=== PATIENT | male | born 1945 | race African-American/Black ===

== ENCOUNTER 2018-06-20 06:12 | Inpatient (IN) ==
[2018-06-20] MEDS ORDERED: FUROSEMIDE 100 MG/10 ML VIAL IV STA (06:21)
[2018-06-20] MEDS ORDERED: ALBUTEROL 2.5 MG/3 ML NEB RESP TX SCH (06:30)
[2018-06-20 06:53] LABS: Basophils % 0.4 % (0.0-0.8); Eosinophils % 0.3 % (0.00-10.9); Hematocrit 40.9 VOL% (42.0-52.0); Hemoglobin 12.8 GM/DL (14.0-18.0); Immature Granulocytes % 0.3 %; Immature Granulocytes Absolute 0.03 #; Lymphocytes # 1.5 10*3/uL (1.4-4.0); Lymphocytes % 15.9 % (21.2-54.2); Mean Corpuscular HGB Conc 31.3 GM/DL (32-36); Mean Corpuscular Hemoglobin 29 PG (27-34); Mean Corpuscular Volume 91.7 FL (87-102); Mean Platelet Volume 10.3 FL (9.6-12.0); Monocytes # 0.6 10*3/uL (0.11-0.8); Monocytes % 6.5 % (1.7-12.7); Neutrophils # 7.4 10*3/uL (1.4-7.4); Neutrophils % 76.6 % (38.7-73.9); Platelet Count 238 T/CUMM (130-400); Red Blood Count 4.46 MC/CUMM (3.8-5.5); Red Cell Distribution Width 16.1 % (9.3-17.3); White Blood Count 9.7 T/CUMM (4-12)
[2018-06-20 06:59] LABS: ABG Base Excess 1.3 MMOL/L (-2.5-2.5); ABG HCO3 25.5 MMOL/L (20-26); ABG PCO2 38.4 MM HG (35-48); ABG PO2 84.8 MM HG (80-95); ABG TCO2 22.2 MMOL/L (23-27); Allen Test Positive
[2018-06-20 07:06] LABS: INR 1.1; PT Patient Result 11.5 SECS; Partial Thromboplastin Time 25.9 SECS (0-40)
[2018-06-20 07:12] LABS: Albumin 3.2 G/DL (3.4-5.0); Bilirubin,Total 2.1 MG/DL (0.2-1.0); Calcium 8.8 MG/DL (8.5-10.1); Osmolality,Calculated 265.7 MOS/KG (273-304); Potassium 4.7 MMOL/L (3.5-5.1); Total Protein 6.7 G/DL (6.4-8.3)
[2018-06-20 07:40] LABS: Apearance,Urine CLEAR (Clear); Bilirubin,Urine Negative (Negative); Blood, Urine Negative (Negative); Glucose,Urine (UA) Negative (Negative); Hyaline Casts,Urine 4 /LPF (0-3); Ketones,Urine Negative (Negative); Mucus,Urine Occasional /LPF (Occasional); Nitrite,Urine Negative (Negative); Protein,Urine Negative; RBC,Urine <1 /HPF (0-4); Urine Color Straw (Yellow); Urine Specific Gravity 1.005 (1.001-1.035); Urine Urobilinogen < 2.0 EU/DL (0.2-1.0)
[2018-06-20] MEDS ORDERED: ACETAMINOPHEN 325 MG TABLET PO PRN (08:41)
[2018-06-20] MEDS ORDERED: ONDANSETRON 4 MG/2 ML VIAL IV PRN (08:41)
[2018-06-20] MEDS ORDERED: NICOTINE 21 MG/24 HR PATCH TRANSDERM PRN (08:41)
[2018-06-20] MEDS ORDERED: traMADol 50 MG TABLET PO PRN (08:57)
[2018-06-20] MEDS ORDERED: ALBUTEROL/IPRATROPIUM 3 ML NEB RESP TX PRN (08:57)
[2018-06-20] MEDS: ATORVASTATIN 40 MG TABLET PO SCH (11:55)
[2018-06-20] MEDS: METOPROLOL SUCCINATE XL 25 MG TABLET PO SCH (11:55)
[2018-06-20] MEDS: ASPIRIN CHEW 81 MG TABLET PO SCH (11:55)
[2018-06-20] MEDS: PANTOPRAZOLE 40 MG TABLET PO SCH (11:55)
[2018-06-20] MEDS: LACTULOSE 20 GM/30 ML UDCUP PO SCH (11:56)
[2018-06-20] MEDS: BUDESONIDE/FORMOTEROL 160-4.5 INHALER 6 GM INH SCH ×2 (11:56→21:08)
[2018-06-20] MEDS: ALBUTEROL/IPRATROPIUM 3 ML NEB RESP TX SCH ×2 (12:02→19:39)
[2018-06-20] MEDS: FUROSEMIDE 40 MG/4 ML VIAL IV SCH (17:53)
[2018-06-21] MEDS: ALBUTEROL/IPRATROPIUM 3 ML NEB RESP TX SCH ×4 (01:48→19:54)
[2018-06-21 04:05] LABS: Basophils % 0.4 % (0.0-0.8); Eosinophils % 0.2 % (0.00-10.9); Hematocrit 32.8 VOL% (42.0-52.0); Hemoglobin 10.8 GM/DL (14.0-18.0); Immature Granulocytes % 0.5 %; Immature Granulocytes Absolute 0.04 #; Lymphocytes % 11.1 % (21.2-54.2); Mean Corpuscular HGB Conc 32.9 GM/DL (32-36); Mean Corpuscular Hemoglobin 29 PG (27-34); Mean Corpuscular Volume 89.1 FL (87-102); Mean Platelet Volume 10.4 FL (9.6-12.0); Monocytes # 0.8 10*3/uL (0.11-0.8); Monocytes % 9.1 % (1.7-12.7); Neutrophils # 6.7 10*3/uL (1.4-7.4); Neutrophils % 78.7 % (38.7-73.9); Platelet Count 196 T/CUMM (130-400); Red Blood Count 3.68 MC/CUMM (3.8-5.5); Red Cell Distribution Width 15.8 % (9.3-17.3); White Blood Count 8.6 T/CUMM (4-12)
[2018-06-21 04:31] LABS: Osmolality,Calculated 271.1 MOS/KG (273-304); Potassium 3.8 MMOL/L (3.5-5.1)
[2018-06-21 04:42] LABS: Calcium 8.3 MG/DL (8.5-10.1); Osmolality,Calculated 267.4 MOS/KG (273-304); Potassium 3.7 MMOL/L (3.5-5.1); Thyroid Stimulating Hormone 0.529 uIU/ml (0.358-3.74)
[2018-06-21] MEDS: LACTULOSE 20 GM/30 ML UDCUP PO SCH ×2 (09:12→09:13)
[2018-06-21] MEDS: BUDESONIDE/FORMOTEROL 160-4.5 INHALER 6 GM INH SCH ×2 (09:12→21:33)
[2018-06-21] MEDS: ATORVASTATIN 40 MG TABLET PO SCH (09:12)
[2018-06-21] MEDS: PANTOPRAZOLE 40 MG TABLET PO SCH (09:12)
[2018-06-21] MEDS: METOPROLOL SUCCINATE XL 25 MG TABLET PO SCH (09:12)
[2018-06-21] MEDS: FUROSEMIDE 40 MG/4 ML VIAL IV SCH ×2 (09:12→16:56)
[2018-06-21] MEDS: ASPIRIN CHEW 81 MG TABLET PO SCH (09:12)
[2018-06-21] MEDS: SACUBITRIL/VALSARTAN 49-51 MG TABLET PO SCH ×2 (09:26→21:33)
[2018-06-21] MEDS ORDERED: SKIN HEALING OINT (AQUAPHOR) 50 GM TUBE TOP PRN (12:44)
[2018-06-22 04:13] LABS: Basophils % 0.4 % (0.0-0.8); Eosinophils # 0.1 10*3/uL (0.0-0.87); Eosinophils % 1.1 % (0.00-10.9); Hematocrit 36.9 VOL% (42.0-52.0); Hemoglobin 11.6 GM/DL (14.0-18.0); Immature Granulocytes % 0.4 %; Immature Granulocytes Absolute 0.03 #; Lymphocytes # 1.4 10*3/uL (1.4-4.0); Lymphocytes % 18.6 % (21.2-54.2); Mean Corpuscular HGB Conc 31.4 GM/DL (32-36); Mean Corpuscular Hemoglobin 29 PG (27-34); Mean Corpuscular Volume 91.1 FL (87-102); Mean Platelet Volume 10.1 FL (9.6-12.0); Monocytes # 0.6 10*3/uL (0.11-0.8); Monocytes % 7.9 % (1.7-12.7); Neutrophils # 5.5 10*3/uL (1.4-7.4); Neutrophils % 71.6 % (38.7-73.9); Platelet Count 220 T/CUMM (130-400); Red Blood Count 4.05 MC/CUMM (3.8-5.5); Red Cell Distribution Width 15.9 % (9.3-17.3); White Blood Count 7.6 T/CUMM (4-12)
[2018-06-22 04:26] LABS: Calcium 8.7 MG/DL (8.5-10.1); Osmolality,Calculated 274.8 MOS/KG (273-304); Potassium 3.4 MMOL/L (3.5-5.1)
[2018-06-22] MEDS ORDERED: POTASSIUM CHLORIDE RIDER 10 MEQ in PREMIX 1 EACH IV PRN (04:28)
[2018-06-22 04:30] LABS: Albumin 2.7 G/DL (3.4-5.0); Bilirubin,Direct 0.53 MG/DL (0.0-0.20); Bilirubin,Total 1.5 MG/DL (0.2-1.0); Total Protein 6.3 G/DL (6.4-8.3)
[2018-06-22] MEDS: POTASSIUM CHLORIDE 20 MEQ TABLET PO PRN ×4 (06:43→21:08)
[2018-06-22] MEDS: ALBUTEROL/IPRATROPIUM 3 ML NEB RESP TX SCH ×4 (07:39→19:20)
[2018-06-22] MEDS: PANTOPRAZOLE 40 MG TABLET PO SCH (08:26)
[2018-06-22] MEDS: ASPIRIN CHEW 81 MG TABLET PO SCH (08:26)
[2018-06-22] MEDS: METOPROLOL SUCCINATE XL 25 MG TABLET PO SCH (08:26)
[2018-06-22] MEDS: LACTULOSE 20 GM/30 ML UDCUP PO SCH (08:26)
[2018-06-22] MEDS: ATORVASTATIN 40 MG TABLET PO SCH (08:26)
[2018-06-22] MEDS: FUROSEMIDE 40 MG/4 ML VIAL IV SCH ×2 (08:26→16:44)
[2018-06-22] MEDS: SACUBITRIL/VALSARTAN 49-51 MG TABLET PO SCH ×2 (08:33→21:04)
[2018-06-22] MEDS: BUDESONIDE/FORMOTEROL 160-4.5 INHALER 6 GM INH SCH ×2 (08:34→21:09)
[2018-06-22] MEDS: NYSTATIN 500,000 UNIT/5 ML UDCUP SWISH/SWAL SCH ×4 (08:34→22:04)
[2018-06-23] MEDS: ALBUTEROL/IPRATROPIUM 3 ML NEB RESP TX SCH ×4 (01:20→19:23)
[2018-06-23 04:26] LABS: Basophils % 0.4 % (0.0-0.8); Eosinophils # 0.2 10*3/uL (0.0-0.87); Eosinophils % 1.8 % (0.00-10.9); Hematocrit 37.5 VOL% (42.0-52.0); Hemoglobin 11.7 GM/DL (14.0-18.0); Immature Granulocytes % 0.2 %; Immature Granulocytes Absolute 0.02 #; Lymphocytes # 1.7 10*3/uL (1.4-4.0); Lymphocytes % 19.6 % (21.2-54.2); Mean Corpuscular HGB Conc 31.2 GM/DL (32-36); Mean Corpuscular Hemoglobin 29 PG (27-34); Mean Corpuscular Volume 92.4 FL (87-102); Mean Platelet Volume 10.1 FL (9.6-12.0); Monocytes # 0.9 10*3/uL (0.11-0.8); Monocytes % 10.1 % (1.7-12.7); Neutrophils # 5.8 10*3/uL (1.4-7.4); Neutrophils % 67.9 % (38.7-73.9); Platelet Count 221 T/CUMM (130-400); Red Blood Count 4.06 MC/CUMM (3.8-5.5); Red Cell Distribution Width 15.9 % (9.3-17.3); White Blood Count 8.5 T/CUMM (4-12)
[2018-06-23 04:45] LABS: Calcium 8.4 MG/DL (8.5-10.1); Osmolality,Calculated 281.4 MOS/KG (273-304); Potassium 3.9 MMOL/L (3.5-5.1)
[2018-06-23] MEDS: METOPROLOL SUCCINATE XL 25 MG TABLET PO SCH (09:11)
[2018-06-23] MEDS: ASPIRIN CHEW 81 MG TABLET PO SCH (09:11)
[2018-06-23] MEDS: PANTOPRAZOLE 40 MG TABLET PO SCH (09:11)
[2018-06-23] MEDS: NYSTATIN 500,000 UNIT/5 ML UDCUP SWISH/SWAL SCH ×4 (09:11→21:10)
[2018-06-23] MEDS: ATORVASTATIN 40 MG TABLET PO SCH (09:11)
[2018-06-23] MEDS: SACUBITRIL/VALSARTAN 49-51 MG TABLET PO SCH ×2 (09:11→21:10)
[2018-06-23] MEDS: BUDESONIDE/FORMOTEROL 160-4.5 INHALER 6 GM INH SCH ×2 (09:11→22:16)
[2018-06-23] MEDS: FUROSEMIDE 40 MG/4 ML VIAL IV SCH ×2 (09:12→16:40)
[2018-06-23] MEDS: LACTULOSE 20 GM/30 ML UDCUP PO SCH (09:16)
[2018-06-23] MEDS ORDERED: MAGNESIUM SULF RIDER 2 GM in PREMIX 1 EACH IV PRN (10:18)
[2018-06-23] MEDS ORDERED: POTASSIUM CHLORIDE RIDER 10 MEQ in PREMIX 1 EACH IV PRN (10:18)
[2018-06-23] MEDS: LEVOFLOXACIN INJ 750 MG in PREMIX 1 EACH IV SCH (10:27)
[2018-06-23] MEDS: POTASSIUM CHLORIDE 20 MEQ TABLET PO PRN (10:28)
[2018-06-24] MEDS: ALBUTEROL/IPRATROPIUM 3 ML NEB RESP TX SCH ×4 (00:13→19:16)
[2018-06-24 04:23] LABS: Basophils # 0.1 10*3/uL (0.0-0.2); Basophils % 0.7 % (0.0-0.8); Eosinophils # 0.1 10*3/uL (0.0-0.87); Eosinophils % 1.7 % (0.00-10.9); Hematocrit 39.8 VOL% (42.0-52.0); Hemoglobin 12.5 GM/DL (14.0-18.0); Immature Granulocytes % 0.5 %; Immature Granulocytes Absolute 0.04 #; Lymphocytes # 1.8 10*3/uL (1.4-4.0); Lymphocytes % 21.6 % (21.2-54.2); Mean Corpuscular HGB Conc 31.4 GM/DL (32-36); Mean Corpuscular Hemoglobin 29 PG (27-34); Mean Corpuscular Volume 91.9 FL (87-102); Mean Platelet Volume 10.4 FL (9.6-12.0); Monocytes # 0.8 10*3/uL (0.11-0.8); Monocytes % 9.6 % (1.7-12.7); Neutrophils # 5.6 10*3/uL (1.4-7.4); Neutrophils % 65.9 % (38.7-73.9); Platelet Count 242 T/CUMM (130-400); Red Blood Count 4.33 MC/CUMM (3.8-5.5); Red Cell Distribution Width 15.8 % (9.3-17.3); White Blood Count 8.4 T/CUMM (4-12)
[2018-06-24 04:44] LABS: Calcium 8.9 MG/DL (8.5-10.1); Osmolality,Calculated 275.8 MOS/KG (273-304); Potassium 3.9 MMOL/L (3.5-5.1)
[2018-06-24] MEDS ORDERED: diphenhydrAMINE CAP 25 MG CAPSULE PO ONE (07:00)
[2018-06-24] MEDS ORDERED: DIAZEPAM 5 MG TABLET PO ONE (07:00)
[2018-06-24] MEDS: ATORVASTATIN 40 MG TABLET PO SCH ×2 (07:02→09:30)
[2018-06-24] MEDS: ASPIRIN CHEW 81 MG TABLET PO SCH ×2 (07:02→09:31)
[2018-06-24] MEDS: METOPROLOL SUCCINATE XL 25 MG TABLET PO SCH ×2 (07:02→09:31)
[2018-06-24] MEDS ORDERED: LIDOCAINE 1%/EPI INJ 20 ML VIAL ONE (07:28)
[2018-06-24] MEDS ORDERED: MIDAZOLAM 2 MG/2 ML VIAL ONE (07:28)
[2018-06-24] MEDS ORDERED: fentaNYL 100 MCG/2 ML VIAL ONE (07:28)
[2018-06-24] MEDS ORDERED: HEPARIN/NACL 0.9% 2 UNITS/ML 1,000 ML IV ONE (07:28)
[2018-06-24] MEDS ORDERED: LIDOCAINE 1% 20 ML VIAL ONE (08:25)
[2018-06-24] MEDS: LEVOFLOXACIN INJ 750 MG in PREMIX 1 EACH IV SCH (09:29)
[2018-06-24] MEDS: PANTOPRAZOLE 40 MG TABLET PO SCH (09:30)
[2018-06-24] MEDS: NYSTATIN 500,000 UNIT/5 ML UDCUP SWISH/SWAL SCH ×4 (09:31→21:47)
[2018-06-24] MEDS: SACUBITRIL/VALSARTAN 49-51 MG TABLET PO SCH ×2 (09:31→21:47)
[2018-06-24] MEDS: LACTULOSE 20 GM/30 ML UDCUP PO SCH ×2 (09:31→18:36)
[2018-06-24] MEDS: FUROSEMIDE 40 MG/4 ML VIAL IV SCH ×2 (09:31→16:20)
[2018-06-24] MEDS: BUDESONIDE/FORMOTEROL 160-4.5 INHALER 6 GM INH SCH ×2 (09:46→21:48)
[2018-06-25] MEDS: ALBUTEROL/IPRATROPIUM 3 ML NEB RESP TX SCH ×3 (00:54→13:00)
[2018-06-25 05:01] LABS: Basophils % 0.4 % (0.0-0.8); Eosinophils # 0.1 10*3/uL (0.0-0.87); Eosinophils % 1.2 % (0.00-10.9); Hematocrit 38.7 VOL% (42.0-52.0); Hemoglobin 12.1 GM/DL (14.0-18.0); Immature Granulocytes % 0.8 %; Immature Granulocytes Absolute 0.07 #; Lymphocytes # 1.9 10*3/uL (1.4-4.0); Lymphocytes % 20.5 % (21.2-54.2); Mean Corpuscular HGB Conc 31.3 GM/DL (32-36); Mean Corpuscular Hemoglobin 29 PG (27-34); Mean Corpuscular Volume 91.7 FL (87-102); Monocytes # 0.6 10*3/uL (0.11-0.8); Monocytes % 6.4 % (1.7-12.7); Neutrophils # 6.4 10*3/uL (1.4-7.4); Neutrophils % 70.7 % (38.7-73.9); Platelet Count 264 T/CUMM (130-400); Red Blood Count 4.22 MC/CUMM (3.8-5.5); Red Cell Distribution Width 15.8 % (9.3-17.3); White Blood Count 9.1 T/CUMM (4-12)
[2018-06-25 05:17] LABS: Calcium 8.8 MG/DL (8.5-10.1); Osmolality,Calculated 267.4 MOS/KG (273-304)
[2018-06-25] MEDS: ASPIRIN CHEW 81 MG TABLET PO SCH (10:06)
[2018-06-25] MEDS: LACTULOSE 20 GM/30 ML UDCUP PO SCH (10:06)
[2018-06-25] MEDS: SACUBITRIL/VALSARTAN 49-51 MG TABLET PO SCH (10:07)
[2018-06-25] MEDS: ATORVASTATIN 40 MG TABLET PO SCH (10:08)
[2018-06-25] MEDS: METOPROLOL SUCCINATE XL 25 MG TABLET PO SCH (10:08)
[2018-06-25] MEDS: PANTOPRAZOLE 40 MG TABLET PO SCH (10:08)
[2018-06-25] MEDS: NYSTATIN 500,000 UNIT/5 ML UDCUP SWISH/SWAL SCH ×2 (10:08→15:08)
[2018-06-25] MEDS: LEVOFLOXACIN INJ 750 MG in PREMIX 1 EACH IV SCH (10:09)
[2018-06-25] MEDS: BUDESONIDE/FORMOTEROL 160-4.5 INHALER 6 GM INH SCH (10:09)
[2018-06-25] MEDS: FUROSEMIDE 40 MG/4 ML VIAL IV SCH (10:20)
[2018-06-25] MEDS ORDERED: FUROSEMIDE 40 MG TABLET PO SCH (16:00)
[2018-06-25 16:01] VITALS: BP 88/51
== END 2018-06-25 16:12 | disposition home or self-care (01) | DRG 287 ==
LOC: EDBD → EDUNIT# → N.ED 06:12 → SUATTDRO 08:40 → N.EDINP 08:40 → N.TELES 09:59
PROVIDERS: ADMIT Internal Medicine Cardiovascular Disease; ATTEND Internal Medicine

== ENCOUNTER 2022-06-20 10:47 | Inpatient (IN) ==
[2022-06-20 11:21] LABS: Arterial Base Excess iSTAT -1 MMOL/L (-2.5-2.5); Arterial Bicarbonate iSTAT 22.2 MMOL/L (20-26); Arterial O2 Saturation iSTAT 89 % (95-100); Arterial PCO2 iSTAT 33 MM HG (35-48); Arterial PO2 iSTAT 54 MM HG (80-95); Arterial Total CO2 iSTAT 23 MMO/L (23-27); Arterial pH iSTAT 7.434 (7.35-7.45)
[2022-06-20] MEDS ORDERED: methylPREDNISolone SOD SUC 125 MG/2 ML VIAL IV STA (11:26)
[2022-06-20] MEDS ORDERED: FUROSEMIDE 40 MG/4 ML VIAL IV STA (11:26)
[2022-06-20] MEDS ORDERED: ALBUTEROL/IPRATROPIUM 3 ML NEB RESP TX STA (11:26)
[2022-06-20 12:23] LABS: PT Patient Result 11.2 SECS (10.1-12.1)
[2022-06-20 12:34] LABS: Albumin 3.1 G/DL (3.4-5.0); Calcium 9.5 MG/DL (8.5-10.1); Osmolality,Calculated 282.3 MOS/KG (273-304); Potassium 3.9 MMOL/L (3.5-5.1); Total Protein 7.1 G/DL (6.4-8.2)
[2022-06-20 13:46] LABS: Basophils % 0.3 % (0.0-0.8); Eosinophils % 0.2 % (0.00-10.9); Hematocrit 41.1 VOL% (42.0-52.0); Hemoglobin 12.9 GM/DL (14.0-18.0); Immature Granulocytes % 0.6 %; Immature Granulocytes Absolute 0.06 #; Lymphocytes # 0.7 10*3/uL (1.4-4.0); Lymphocytes % 7.4 % (21.2-54.2); Mean Corpuscular HGB Conc 31.4 GM/DL (32-36); Mean Corpuscular Volume 91.3 FL (87-102); Mean Platelet Volume 9.9 FL (9.6-12.0); Monocytes # 0.4 10*3/uL (0.11-0.8); Monocytes % 3.9 % (1.7-12.7); NRBC # 0.02 10*3/uL; Neutrophils % 87.6 % (38.7-73.9); Platelet Count 278 T/CUMM (130-400); White Blood Count 9.4 T/CUMM (4-12)
[2022-06-20] MEDS ORDERED: DOCUSATE SODIUM 100 MG CAPSULE PO PRN (14:22)
[2022-06-20] MEDS ORDERED: ACETAMINOPHEN 325 MG TABLET PO PRN (14:22)
[2022-06-20] MEDS ORDERED: ONDANSETRON 4 MG/2 ML VIAL IV PRN (14:22)
[2022-06-20] MEDS: PANTOPRAZOLE 40 MG TABLET PO SCH (17:00)
[2022-06-20] MEDS: ENOXAPARIN 40 MG/0.4 ML SYRINGE SUBCUT SCH (17:01)
[2022-06-20] MEDS: LEVOFLOXACIN INJ 500 MG/100 ML PREMIX IV SCH (17:02)
[2022-06-20] MEDS: ALBUTEROL 2.5 MG/3 ML NEB RESP TX SCH (19:55)
[2022-06-20] MEDS: methylPREDNISolone SOD SUC 40 MG/1 ML VIAL IV SCH (20:15)
[2022-06-20] MEDS: FUROSEMIDE 40 MG/4 ML VIAL IV SCH (20:15)
[2022-06-21 01:00] LABS: Basophils % 0.2 % (0.0-0.8); Hematocrit 38.2 VOL% (42.0-52.0); Hemoglobin 12.3 GM/DL (14.0-18.0); Immature Granulocytes % 0.5 %; Immature Granulocytes Absolute 0.04 #; Lymphocytes # 0.8 10*3/uL (1.4-4.0); Mean Corpuscular HGB Conc 32.2 GM/DL (32-36); Mean Corpuscular Volume 90.5 FL (87-102); Mean Platelet Volume 10.3 FL (9.6-12.0); Monocytes # 0.2 10*3/uL (0.11-0.8); Monocytes % 2.2 % (1.7-12.7); Neutrophils % 88.1 % (38.7-73.9); Platelet Count 286 T/CUMM (130-400); Red Blood Count 4.22 MC/CUMM (3.8-5.5); White Blood Count 8.5 T/CUMM (4-12)
[2022-06-21 01:19] LABS: Calcium 9.1 MG/DL (8.5-10.1); Osmolality,Calculated 281.4 MOS/KG (273-304); Potassium 3.9 MMOL/L (3.5-5.1); Thyroid Stimulating Hormone 0.348 uIU/ml (0.358-3.74)
[2022-06-21] MEDS: ALBUTEROL 2.5 MG/3 ML NEB RESP TX SCH ×4 (02:30→18:59)
[2022-06-21] MEDS: PANTOPRAZOLE 40 MG TABLET PO SCH (08:55)
[2022-06-21] MEDS: FUROSEMIDE 40 MG/4 ML VIAL IV SCH ×2 (09:30→17:23)
[2022-06-21] MEDS: methylPREDNISolone SOD SUC 40 MG/1 ML VIAL IV SCH ×2 (09:52→20:27)
[2022-06-21] MEDS: METOPROLOL SUCCINATE XL 25 MG TABLET PO SCH (10:34)
[2022-06-21] MEDS: LEVOFLOXACIN INJ 500 MG/100 ML PREMIX IV SCH (14:36)
[2022-06-21] MEDS: ENOXAPARIN 40 MG/0.4 ML SYRINGE SUBCUT SCH (14:38)
[2022-06-22] MEDS: ALBUTEROL 2.5 MG/3 ML NEB RESP TX SCH ×4 (01:48→19:40)
[2022-06-22 04:38] LABS: Basophils % 0.1 % (0.0-0.8); Hematocrit 35.8 VOL% (42.0-52.0); Hemoglobin 11.1 GM/DL (14.0-18.0); Immature Granulocytes % 0.7 %; Immature Granulocytes Absolute 0.07 #; Lymphocytes # 0.7 10*3/uL (1.4-4.0); Lymphocytes % 6.7 % (21.2-54.2); Mean Corpuscular Volume 91.1 FL (87-102); Mean Platelet Volume 10.4 FL (9.6-12.0); Monocytes # 0.7 10*3/uL (0.11-0.8); Monocytes % 6.3 % (1.7-12.7); Neutrophils % 86.2 % (38.7-73.9); Platelet Count 277 T/CUMM (130-400); Red Blood Count 3.93 MC/CUMM (3.8-5.5); White Blood Count 10.5 T/CUMM (4-12)
[2022-06-22 05:03] LABS: Calcium 9.1 MG/DL (8.5-10.1); Osmolality,Calculated 282.5 MOS/KG (273-304); Potassium 4.1 MMOL/L (3.5-5.1)
[2022-06-22] MEDS: FUROSEMIDE 40 MG/4 ML VIAL IV SCH ×2 (09:13→16:38)
[2022-06-22] MEDS: methylPREDNISolone SOD SUC 40 MG/1 ML VIAL IV SCH ×2 (09:21→22:07)
[2022-06-22] MEDS: METOPROLOL SUCCINATE XL 25 MG TABLET PO SCH (09:22)
[2022-06-22] MEDS: PANTOPRAZOLE 40 MG TABLET PO SCH (09:22)
[2022-06-22] MEDS ORDERED: guaiFENesin 200 MG/10 ML UDCUP PO PRN (09:39)
[2022-06-22] MEDS: LEVOFLOXACIN INJ 500 MG/100 ML PREMIX IV SCH (14:37)
[2022-06-22] MEDS: ENOXAPARIN 40 MG/0.4 ML SYRINGE SUBCUT SCH (14:39)
[2022-06-22] MEDS ORDERED: MONTELUKAST 10 MG TABLET PO SCH (21:00)
[2022-06-23] MEDS: ALBUTEROL 2.5 MG/3 ML NEB RESP TX SCH ×2 (00:50→07:46)
[2022-06-23 04:43] LABS: Basophils % 0.1 % (0.0-0.8); Hematocrit 34.8 VOL% (42.0-52.0); Hemoglobin 10.8 GM/DL (14.0-18.0); Immature Granulocytes % 0.8 %; Immature Granulocytes Absolute 0.08 #; Lymphocytes # 0.5 10*3/uL (1.4-4.0); Lymphocytes % 5.1 % (21.2-54.2); Mean Corpuscular Volume 93.5 FL (87-102); Mean Platelet Volume 10.6 FL (9.6-12.0); Monocytes # 0.5 10*3/uL (0.11-0.8); Monocytes % 4.9 % (1.7-12.7); Neutrophils % 89.1 % (38.7-73.9); Platelet Count 286 T/CUMM (130-400); Red Blood Count 3.72 MC/CUMM (3.8-5.5); Red Cell Distribution Width 16.3 % (9.3-17.3); White Blood Count 9.7 T/CUMM (4-12)
[2022-06-23 05:06] LABS: Osmolality,Calculated 284.4 MOS/KG (273-304); Potassium 3.8 MMOL/L (3.5-5.1)
[2022-06-23] MEDS: PANTOPRAZOLE 40 MG TABLET PO SCH (09:12)
[2022-06-23] MEDS: METOPROLOL SUCCINATE XL 25 MG TABLET PO SCH (09:15)
[2022-06-23] MEDS: methylPREDNISolone SOD SUC 40 MG/1 ML VIAL IV SCH (10:10)
[2022-06-23] MEDS: FUROSEMIDE 40 MG/4 ML VIAL IV SCH (10:14)
[2022-06-23 12:15] VITALS: BP 101/76
== END 2022-06-23 13:19 | disposition home health service (06) | DRG 291 ==
LOC: N.ED 10:47 → N.EDINP 14:17 → N.TELES 17:14
PROVIDERS: ADMIT Hospitalist; ATTEND Hospitalist

== ENCOUNTER 2022-07-13 12:01 | Inpatient (IN) ==
[2022-07-13] MEDS ORDERED: FUROSEMIDE 40 MG/4 ML VIAL IV STA (13:04)
[2022-07-13 13:53] LABS: Basophils % 0.4 % (0.0-0.8); Eosinophils # 0.1 10*3/uL (0.0-0.87); Eosinophils % 0.8 % (0.00-10.9); Hematocrit 43.9 VOL% (42.0-52.0); Hemoglobin 13.3 GM/DL (14.0-18.0); Immature Granulocytes % 0.6 %; Immature Granulocytes Absolute 0.06 #; Lymphocytes # 1.2 10*3/uL (1.4-4.0); Lymphocytes % 11.3 % (21.2-54.2); Mean Corpuscular HGB Conc 30.3 GM/DL (32-36); Mean Corpuscular Volume 98.2 FL (87-102); Mean Platelet Volume 11.5 FL (9.6-12.0); Monocytes # 0.5 10*3/uL (0.11-0.8); Monocytes % 5.2 % (1.7-12.7); Neutrophils % 81.7 % (38.7-73.9); Platelet Count 130 T/CUMM (130-400); Red Blood Count 4.47 MC/CUMM (3.8-5.5); Red Cell Distribution Width 18.8 % (9.3-17.3); White Blood Count 10.18 T/CUMM (4-12)
[2022-07-13 14:44] LABS: Albumin 3.2 G/DL (3.4-5.0); Bilirubin,Total 1.2 MG/DL (0.20-1.00); Calcium 9.5 MG/DL (8.5-10.1); Potassium 4.4 MMOL/L (3.5-5.1)
[2022-07-13] MEDS ORDERED: ONDANSETRON 4 MG/2 ML VIAL IV PRN (15:08)
[2022-07-13] MEDS ORDERED: ACETAMINOPHEN 325 MG TABLET PO PRN (15:08)
[2022-07-13] MEDS ORDERED: ZALEPLON 5 MG CAPSULE PO PRN (15:08)
[2022-07-13] MEDS: ENOXAPARIN 40 MG/0.4 ML SYRINGE SUBCUT SCH (16:21)
[2022-07-13 18:01] LABS: Bilirubin,Urine Negative (Negative); Blood, Urine Negative (Negative); Glucose,Urine (UA) Negative (Negative); Ketones,Urine Negative (Negative); Nitrite,Urine Negative (Negative); Protein,Urine Negative (Negative); Urine Appearance Clear (Clear); Urine Color Yellow (Yellow); Urine Specific Gravity 1.015 (1.001-1.035); Urine Urobilinogen 0.2 eU/dL (<2.0); Urine pH 5.5 (4.5-8.0)
[2022-07-13 18:04] LABS: Bacteria,Urine Occasional /HPF (Few); Mucus,Urine Occasional /LPF (Occasional); RBC,Urine 1 /HPF (0-4); Squamous Epithelial Cell,Urine Occasional /HPF (0-10)
[2022-07-13] MEDS: LEVALBUTEROL 1.25 MG/3 ML NEB RESP TX SCH (19:49)
[2022-07-13] MEDS: MONTELUKAST 10 MG TABLET PO SCH (21:28)
[2022-07-13] MEDS: BUDESONIDE/FORMOTEROL 160-4.5 INHALER 6 GM INH SCH (21:30)
[2022-07-14] MEDS: LEVALBUTEROL 1.25 MG/3 ML NEB RESP TX SCH ×4 (01:14→19:35)
[2022-07-14 05:20] LABS: Basophils % 0.3 % (0.0-0.8); Eosinophils # 0.1 10*3/uL (0.0-0.87); Eosinophils % 0.8 % (0.00-10.9); Hematocrit 35.2 VOL% (42.0-52.0); Hemoglobin 10.8 GM/DL (14.0-18.0); Immature Granulocytes % 0.8 %; Immature Granulocytes Absolute 0.07 #; Lymphocytes % 10.6 % (21.2-54.2); Mean Corpuscular HGB Conc 30.7 GM/DL (32-36); Mean Corpuscular Volume 94.6 FL (87-102); Mean Platelet Volume 9.9 FL (9.6-12.0); Monocytes # 0.5 10*3/uL (0.11-0.8); Monocytes % 5.2 % (1.7-12.7); Neutrophils % 82.3 % (38.7-73.9); Platelet Count 207 T/CUMM (130-400); Red Blood Count 3.72 MC/CUMM (3.8-5.5); Red Cell Distribution Width 18.5 % (9.3-17.3); White Blood Count 9.16 T/CUMM (4-12)
[2022-07-14 05:54] LABS: Risk Ratio 2.66; Thyroid Stimulating Hormone 1.03 uIU/ml (0.358-3.74)
[2022-07-14 06:20] LABS: Albumin 2.6 G/DL (3.4-5.0); Bilirubin,Total 1.4 MG/DL (0.20-1.00); Calcium 8.7 MG/DL (8.5-10.1); Osmolality,Calculated 278.5 MOS/KG (273-304); Potassium 3.7 MMOL/L (3.5-5.1); Total Protein 5.5 G/DL (6.4-8.2)
[2022-07-14 06:23] LABS: Hepatitis B Core IgM Quant 0.06 Index; Hepatitis B Surface Ag Quant 0.13 Index; Hepatitis B Surface Ag Result Non-Reactive (NonReactive); Hepatitis C Virus Ab Quant < 0.02 Index; Hepatitis C Virus Ab Result Non-Reactive (NonReactive)
[2022-07-14] MEDS: PANTOPRAZOLE 40 MG TABLET PO SCH (08:57)
[2022-07-14] MEDS: ASPIRIN CHEW 81 MG TABLET PO SCH (08:57)
[2022-07-14] MEDS: METOPROLOL SUCCINATE XL 25 MG TABLET PO SCH (08:57)
[2022-07-14] MEDS: FUROSEMIDE 40 MG/4 ML VIAL IV SCH ×2 (08:57→16:10)
[2022-07-14] MEDS: BUDESONIDE/FORMOTEROL 160-4.5 INHALER 6 GM INH SCH ×2 (08:58→22:47)
[2022-07-14] MEDS: DAPAGLIFLOZIN 10 MG TABLET PO SCH (11:27)
[2022-07-14] MEDS: SPIRONOLACTONE 25 MG TABLET PO SCH (11:27)
[2022-07-14] MEDS: ENOXAPARIN 40 MG/0.4 ML SYRINGE SUBCUT SCH (16:10)
[2022-07-14] MEDS ORDERED: ALBUTEROL/IPRATROPIUM 3 ML NEB RESP TX PRN (16:50)
[2022-07-14] MEDS: MONTELUKAST 10 MG TABLET PO SCH (21:19)
[2022-07-14] MEDS: guaiFENesin/DM ER 600-30 MG TABLET PO PRN (21:32)
[2022-07-15] MEDS: LEVALBUTEROL 1.25 MG/3 ML NEB RESP TX SCH ×4 (01:50→18:51)
[2022-07-15 05:16] LABS: Basophils % 0.5 % (0.0-0.8); Eosinophils # 0.1 10*3/uL (0.0-0.87); Eosinophils % 1.4 % (0.00-10.9); Hematocrit 36.5 VOL% (42.0-52.0); Hemoglobin 11.4 GM/DL (14.0-18.0); Immature Granulocytes % 0.5 %; Immature Granulocytes Absolute 0.04 #; Lymphocytes # 0.9 10*3/uL (1.4-4.0); Mean Corpuscular HGB Conc 31.2 GM/DL (32-36); Mean Corpuscular Volume 93.4 FL (87-102); Mean Platelet Volume 9.4 FL (9.6-12.0); Monocytes # 0.6 10*3/uL (0.11-0.8); Monocytes % 6.9 % (1.7-12.7); Neutrophils % 79.7 % (38.7-73.9); Platelet Count 195 T/CUMM (130-400); Red Blood Count 3.91 MC/CUMM (3.8-5.5); Red Cell Distribution Width 18.4 % (9.3-17.3); White Blood Count 8.08 T/CUMM (4-12)
[2022-07-15 05:29] LABS: Calcium 8.4 MG/DL (8.5-10.1); Osmolality,Calculated 279.4 MOS/KG (273-304); Potassium 3.3 MMOL/L (3.5-5.1)
[2022-07-15] MEDS ORDERED: POTASSIUM CHLORIDE 20 MEQ TABLET PO ONE (07:48)
[2022-07-15] MEDS: METOPROLOL SUCCINATE XL 25 MG TABLET PO SCH (08:25)
[2022-07-15] MEDS: ASPIRIN CHEW 81 MG TABLET PO SCH (08:25)
[2022-07-15] MEDS: BUDESONIDE/FORMOTEROL 160-4.5 INHALER 6 GM INH SCH ×2 (08:25→21:11)
[2022-07-15] MEDS: PANTOPRAZOLE 40 MG TABLET PO SCH (08:25)
[2022-07-15] MEDS: FUROSEMIDE 40 MG/4 ML VIAL IV SCH ×2 (08:38→16:03)
[2022-07-15] MEDS: DAPAGLIFLOZIN 10 MG TABLET PO SCH (08:38)
[2022-07-15] MEDS: SPIRONOLACTONE 25 MG TABLET PO SCH (13:57)
[2022-07-15] MEDS: ENOXAPARIN 40 MG/0.4 ML SYRINGE SUBCUT SCH (16:04)
[2022-07-15] MEDS: guaiFENesin/DM ER 600-30 MG TABLET PO PRN (16:08)
[2022-07-15] MEDS: MONTELUKAST 10 MG TABLET PO SCH (21:11)
[2022-07-16 06:21] LABS: Basophils % 0.4 % (0.0-0.8); Eosinophils # 0.1 10*3/uL (0.0-0.87); Eosinophils % 1.4 % (0.00-10.9); Hematocrit 35.3 VOL% (42.0-52.0); Immature Granulocytes % 0.6 %; Immature Granulocytes Absolute 0.05 #; Lymphocytes # 0.9 10*3/uL (1.4-4.0); Lymphocytes % 10.7 % (21.2-54.2); Mean Corpuscular HGB Conc 31.2 GM/DL (32-36); Mean Corpuscular Volume 96.4 FL (87-102); Mean Platelet Volume 11.4 FL (9.6-12.0); Monocytes # 0.6 10*3/uL (0.11-0.8); Monocytes % 6.9 % (1.7-12.7); Platelet Count 176 T/CUMM (130-400); Red Blood Count 3.66 MC/CUMM (3.8-5.5); Red Cell Distribution Width 18.6 % (9.3-17.3); White Blood Count 8.29 T/CUMM (4-12)
[2022-07-16] MEDS: LEVALBUTEROL 1.25 MG/3 ML NEB RESP TX SCH ×4 (07:10→19:01)
[2022-07-16 07:24] LABS: Calcium 7.8 MG/DL (8.5-10.1); Osmolality,Calculated 280.3 MOS/KG (273-304); Potassium 3.8 MMOL/L (3.5-5.1)
[2022-07-16] MEDS: PANTOPRAZOLE 40 MG TABLET PO SCH (08:51)
[2022-07-16] MEDS: ASPIRIN CHEW 81 MG TABLET PO SCH (08:51)
[2022-07-16] MEDS: METOPROLOL SUCCINATE XL 25 MG TABLET PO SCH (08:51)
[2022-07-16] MEDS: DAPAGLIFLOZIN 10 MG TABLET PO SCH (08:51)
[2022-07-16] MEDS: FUROSEMIDE 40 MG/4 ML VIAL IV SCH (08:53)
[2022-07-16] MEDS: BUDESONIDE/FORMOTEROL 160-4.5 INHALER 6 GM INH SCH ×2 (08:53→21:40)
[2022-07-16] MEDS: SPIRONOLACTONE 25 MG TABLET PO SCH (08:54)
[2022-07-16] MEDS: FUROSEMIDE 20 MG TABLET PO SCH (15:57)
[2022-07-16] MEDS: ENOXAPARIN 40 MG/0.4 ML SYRINGE SUBCUT SCH (15:57)
[2022-07-16] MEDS ORDERED: FUROSEMIDE 40 MG TABLET PO SCH (16:00)
[2022-07-16] MEDS: MONTELUKAST 10 MG TABLET PO SCH (21:39)
[2022-07-17] MEDS: LEVALBUTEROL 1.25 MG/3 ML NEB RESP TX SCH ×4 (01:29→19:34)
[2022-07-17 07:19] LABS: Red Blood Count 4.07 MC/CUMM (3.8-5.5); White Blood Count 7.18 T/CUMM (4-12)
[2022-07-17 07:20] LABS: Basophils % 0.4 % (0.0-0.8); Eosinophils # 0.1 10*3/uL (0.0-0.87); Eosinophils % 1.7 % (0.00-10.9); Hematocrit 38.7 VOL% (42.0-52.0); Hemoglobin 11.9 GM/DL (14.0-18.0); Immature Granulocytes % 0.8 %; Immature Granulocytes Absolute 0.06 #; Lymphocytes # 1.1 10*3/uL (1.4-4.0); Lymphocytes % 15.7 % (21.2-54.2); Mean Corpuscular HGB Conc 30.7 GM/DL (32-36); Mean Corpuscular Volume 95.1 FL (87-102); Mean Platelet Volume 9.9 FL (9.6-12.0); Monocytes # 0.6 10*3/uL (0.11-0.8); Monocytes % 8.8 % (1.7-12.7); Neutrophils % 72.6 % (38.7-73.9); Platelet Count 277 T/CUMM (130-400); Red Cell Distribution Width 18.4 % (9.3-17.3)
[2022-07-17 07:33] LABS: Albumin 2.4 G/DL (3.4-5.0); Bilirubin,Total 0.8 MG/DL (0.20-1.00); Calcium 8.8 MG/DL (8.5-10.1); Osmolality,Calculated 280.4 MOS/KG (273-304); Potassium 4.1 MMOL/L (3.5-5.1); Total Protein 6.2 G/DL (6.4-8.2)
[2022-07-17] MEDS: SPIRONOLACTONE 25 MG TABLET PO SCH (08:43)
[2022-07-17] MEDS: PANTOPRAZOLE 40 MG TABLET PO SCH (08:43)
[2022-07-17] MEDS: FUROSEMIDE 20 MG TABLET PO SCH ×2 (08:43→15:50)
[2022-07-17] MEDS: DAPAGLIFLOZIN 10 MG TABLET PO SCH (08:44)
[2022-07-17] MEDS: ASPIRIN CHEW 81 MG TABLET PO SCH (08:44)
[2022-07-17] MEDS: METOPROLOL SUCCINATE XL 25 MG TABLET PO SCH (08:44)
[2022-07-17] MEDS: BUDESONIDE/FORMOTEROL 160-4.5 INHALER 6 GM INH SCH ×2 (08:45→22:52)
[2022-07-17] MEDS: ENOXAPARIN 40 MG/0.4 ML SYRINGE SUBCUT SCH (15:51)
[2022-07-17] MEDS: guaiFENesin/DM ER 600-30 MG TABLET PO PRN (22:51)
[2022-07-17] MEDS: MONTELUKAST 10 MG TABLET PO SCH (22:51)
[2022-07-18] MEDS: LEVALBUTEROL 1.25 MG/3 ML NEB RESP TX SCH ×4 (00:12→19:57)
[2022-07-18 05:25] LABS: Basophils % 0.3 % (0.0-0.8); Eosinophils # 0.1 10*3/uL (0.0-0.87); Eosinophils % 2.1 % (0.00-10.9); Hematocrit 38.5 VOL% (42.0-52.0); Hemoglobin 11.9 GM/DL (14.0-18.0); Immature Granulocytes % 0.6 %; Immature Granulocytes Absolute 0.04 #; Lymphocytes # 1.2 10*3/uL (1.4-4.0); Lymphocytes % 17.2 % (21.2-54.2); Mean Corpuscular HGB Conc 30.9 GM/DL (32-36); Mean Corpuscular Volume 94.4 FL (87-102); Mean Platelet Volume 9.5 FL (9.6-12.0); Monocytes # 0.7 10*3/uL (0.11-0.8); Monocytes % 10.1 % (1.7-12.7); Neutrophils % 69.7 % (38.7-73.9); Platelet Count 292 T/CUMM (130-400); Red Blood Count 4.08 MC/CUMM (3.8-5.5); Red Cell Distribution Width 18.2 % (9.3-17.3); White Blood Count 6.75 T/CUMM (4-12)
[2022-07-18 05:53] LABS: Albumin 2.3 G/DL (3.4-5.0); Bilirubin,Total 1.1 MG/DL (0.20-1.00); Calcium 9.4 MG/DL (8.5-10.1); Osmolality,Calculated 275.7 MOS/KG (273-304); Potassium 4.2 MMOL/L (3.5-5.1); Total Protein 6.2 G/DL (6.4-8.2)
[2022-07-18] MEDS ORDERED: SPIRONOLACTONE 25 MG TABLET PO SCH (09:00)
[2022-07-18] MEDS: PANTOPRAZOLE 40 MG TABLET PO SCH (09:02)
[2022-07-18] MEDS: ASPIRIN CHEW 81 MG TABLET PO SCH (09:02)
[2022-07-18] MEDS: DAPAGLIFLOZIN 10 MG TABLET PO SCH (09:02)
[2022-07-18] MEDS: BUDESONIDE/FORMOTEROL 160-4.5 INHALER 6 GM INH SCH ×2 (09:04→20:23)
[2022-07-18] MEDS: guaiFENesin/DM ER 600-30 MG TABLET PO PRN (09:13)
[2022-07-18] MEDS: ENOXAPARIN 40 MG/0.4 ML SYRINGE SUBCUT SCH (15:09)
[2022-07-18] MEDS: MONTELUKAST 10 MG TABLET PO SCH (20:23)
[2022-07-19] MEDS: LEVALBUTEROL 1.25 MG/3 ML NEB RESP TX SCH ×2 (00:25→07:01)
[2022-07-19 05:00] LABS: Basophils # 0.1 10*3/uL (0.0-0.2); Basophils % 0.7 % (0.0-0.8); Eosinophils # 0.1 10*3/uL (0.0-0.87); Eosinophils % 1.8 % (0.00-10.9); Hemoglobin 11.4 GM/DL (14.0-18.0); Immature Granulocytes % 0.7 %; Immature Granulocytes Absolute 0.05 #; Lymphocytes # 1.1 10*3/uL (1.4-4.0); Lymphocytes % 15.8 % (21.2-54.2); Mean Corpuscular HGB Conc 30.8 GM/DL (32-36); Mean Corpuscular Volume 95.4 FL (87-102); Mean Platelet Volume 9.9 FL (9.6-12.0); Monocytes # 0.8 10*3/uL (0.11-0.8); Monocytes % 11.4 % (1.7-12.7); Neutrophils % 69.6 % (38.7-73.9); Platelet Count 307 T/CUMM (130-400); Red Blood Count 3.88 MC/CUMM (3.8-5.5); Red Cell Distribution Width 17.9 % (9.3-17.3); White Blood Count 6.69 T/CUMM (4-12)
[2022-07-19 05:22] LABS: Albumin 2.4 G/DL (3.4-5.0); Bilirubin,Total 0.9 MG/DL (0.20-1.00); Calcium 9.1 MG/DL (8.5-10.1); Total Protein 6.2 G/DL (6.4-8.2)
[2022-07-19 08:29] VITALS: BP 90/60
== END 2022-07-19 08:50 | disposition swing bed (61) | DRG 292 ==
LOC: EDBD → EDUNIT# → N.EDINP 12:01 → N.ED 12:01 → SUATTDRO 15:08 → N.2W 15:54 → SUATTDRO 07-15 09:54 → N.2E 07-17 09:38
PROVIDERS: ADMIT Family Medicine; ATTEND Internal Medicine